=== PATIENT | male | born 1940 | race Caucasian/White ===

== ENCOUNTER → 2016-06-20 | Outpatient (CLI) | payer MEDICARE, OTHER ==
[~2016-06-20] MED LIST: ACET325T9 PO; BISM262O20 PO; DICL75TA PO; DIPH25CA58 PO; FINA5TAB4 PO; HYDR-2672 PO; LACT20SO PO; RANI150C PO; SENN1TAB70 PO; SENN8.6T3 PO; TAMS0.4C2 PO; TIZA4TAB PO; TRAM50TA PO
--- NOTE | 2016-06-20 15:10 | EKG ---
[facility] [address] [place] [address] Test Date: 2016-06-20 Test Time: 15:02:08 Pat Name: NESS ALFONSO Department: Room: Gender: M Survey Project Manager: SHANTANU : 1940 Requested By: IPEDAD KAUFFMAN Order Number: [id number] Reading MD: Measurements Intervals [place] Rate: 79 P: 0 [place]: 182 QRS: -10 QRSD: 82 T: 31 QT: 368 QTc: 428 Interpretive Statements SINUS RHYTHM LEFTWARD AXIS NO SPECIFIC ECG ABNORMALITIES RI6.01 No previous ECG available for comparison
[2016-06-20 15:22] LABS: BASO # 0.1 x10^3/uL (0.0-0.2); BASO % 1 % (0-3); EOS % 3 % (0-3); HEMATOCRIT 44.9 % (39.0-53.0); LYMPH # 2.1 x10^3/uL (1.0-4.8); LYMPH % 27 % (24-48); MEAN CORPUSCULAR HEMOGLOBIN 30 pg (25-35); MEAN CORPUSCULAR HGB CONC 33 g/dL (31-37); MEAN CORPUSCULAR VOLUME 91 fL (79-100); MONO % 15 % (0-9); NEUT % 55 % (31-73); PLATELET COUNT 230 x10^3/uL (140-400); RED BLOOD COUNT 4.93 x10^6/uL (4.30-5.70); RED CELL DISTRIBUTION WIDTH 14.9 % (11.5-14.5); WHITE BLOOD COUNT 7.7 x10^3/uL (4.0-11.0)
[2016-06-20 15:49] LABS: ALBUMIN 3.5 g/dL (3.4-5.0); ALBUMIN/GLOBULIN RATIO 0.9 (1.0-1.7); CALCIUM 8.9 mg/dL (8.5-10.1); GFR 72.3; TOTAL BILIRUBIN 0.3 mg/dL (0.2-1.0); TOTAL PROTEIN 7.3 g/dL (6.4-8.2)
== END | disposition home or self-care (01) ==
LOC: SURGPAT 13:13
PROVIDERS: ATTEND Neurological Surgery
DX: Z01.818 Encounter for other preprocedural examination (principal); Z72.0 Tobacco use
CPT/HCPCS: 36415; 80053; 85027; 87641; 93005

== ENCOUNTER 2016-06-27 08:28 | Observation (INO) | payer MEDICARE, OTHER ==
--- NOTE | 2016-06-24 21:19 | PREOP HP ---
DATE OF SERVICE: Date of surgery will be 06/27/2016. HISTORY OF PRESENT ILLNESS: This is a 76-year-old who is having difficulty with low back pain and pain which radiated into both of his lateral thighs and legs. He notices bilateral thigh weakness. The problem started about 3 months ago spontaneously, he said it began after a bad flu with lots of coughing. He rates his pain as 5/10 after walking very short distances and must sit. He has no pain with sitting. He says that initially the pain is excruciatingly severe all times, but now does reach the point where he is able to walk for very short distances. He is markedly restricted because of the problem. He is taking tizanidine, Mchenry and tramadol. He has had 2 epidural steroid injections, which have not been helpful. He has been in physical therapy without help. PAST MEDICAL HISTORY: Arthritis. PAST SURGICAL HISTORY: Acute pancreatitis 1959, lumbar surgery 2005. FAMILY HISTORY: Cancer. SOCIAL HISTORY: Retired. . Walks rarely on a treadmill. Denies substance abuse, tobacco use or alcohol use. Drinks coffee, tea and soda daily. ALLERGIES: No known drug allergies. CURRENT MEDICATIONS: Tramadol, Mchenry, tizanidine, diclofenac, cyclobenzaprine, Tegretol, finasteride, tamsulosin, lactulose, Zantac. REVIEW OF SYSTEMS: A 12-point review of systems was obtained and is noncontributory except for that mentioned above. PHYSICAL EXAMINATION: NEUROSURGERY EXAMINATION: GENERAL APPEARANCE: Alert, pleasant, no acute distress. HEAD: Normocephalic and atraumatic. SKIN: Warm and dry. Well-healed lumbar incision. MUSCULOSKELETAL: Lumbar paraspinal muscle bulk is normal, restricted range of motion of lumbar spine, bvdj-di-pichllet tenderness of lower lumbar spine with palpation, normal range of motion of the lower extremities bilaterally. EXTREMITIES: No clubbing, cyanosis or edema. NEUROLOGIC: Alert and oriented x 3, normal recent and remote memory, strength 5/5 in bilateral lower extremities except for 4+/5, left quadriceps, sensory was intact to light touch in the lower extremities bilaterally, reflexes were absent at the knees, 1+ and symmetric in bilateral ankles, negative straight leg raising bilaterally, antalgic gait with forward stoop postured. IMAGING: Reviewed. I reviewed a lumbar myelogram. He has had virtual complete block at L2-L3 with a very large associated mass which is probable sequestered disk fragment. There is also spinal cord stimulator in place. ASSESSMENT: 1. Intervertebral disk disorders with radiculopathy, lumbar region. 2. Spinal stenosis of lumbar region. PLAN: I recommended lumbar laminectomy at L2-L3 to remove herniated disk and address the severe stenosis and decompress the spinal canal. He would decide whether or not he wishes to remove the spinal cord stimulator. I did explain the spinal cord stimulator could be damaged with lumbar surgery. He understands. He would like to go ahead. We will make the arrangements. PIEDAD KAUFFMAN MD DR: KILO/lisseth JOB#: [id number] / [id number]
[~2016-06-27] VITALS: Ht 177.8 cm; Wt 103.9 kg
[~2016-06-27 08:28] MED LIST changes: +BACITRACIN 50,000 UNIT in IV NORMAL SALINE 1000ML BAG 1,000 ML IRR ONE; +HYDROmorphone 2 MG/ML VIAL IV PRN; +IV RINGERS,LACTATED 1000ML 1,000 ML IV SCH; +LIDOCAINE 1% 1 ML SYRINGE. ID PRN; +ONDANSETRON PF 4 MG/2 ML VIAL. IV PRN; +PROCHLORPERAZINE 10 MG/2 ML VIAL. IV PRN; +fentaNYL PF VIAL 100 MCG/2 ML VIAL IV PRN
[2016-06-27] MEDS ORDERED: GELATIN SPONGE SIZE 100. ONE (08:45)
[2016-06-27] MEDS ORDERED: THROMBIN TOPICAL 20,000 UNIT SPRAY.SYRN KIT TP ONE (08:45)
[2016-06-27] MEDS ORDERED: KETOROLAC 60 MG/2 ML INJ FOR OR. ONE (08:45)
[2016-06-27] MEDS ORDERED: BUPIVAC MPF-EPI 0.5%-1:200000 30 ML VIAL. IJ ONE (09:00)
[2016-06-27] MEDS ORDERED: ROCURONIUM 50 MG/5 ML VIAL. ONE (10:33)
[2016-06-27] MEDS ORDERED: PROPOFOL 0 ML IV ONE (10:33)
[2016-06-27] MEDS ORDERED: PROPOFOL 20 ML IV ONE ×3 (10:33→13:09)
[2016-06-27] MEDS ORDERED: DEXAMETHASONE SOD PHOS 20 MG/5 ML VIAL. ONE (10:33)
[2016-06-27] MEDS ORDERED: ONDANSETRON PF 4 MG/2 ML VIAL. ONE (10:33)
[2016-06-27] MEDS ORDERED: REMIFENTANIL 2 MG VIAL. IV ONE (10:33)
[2016-06-27] MEDS ORDERED: PHENYLEPHRINE 10 MG/ML VIAL. ONE (10:33)
[2016-06-27] MEDS ORDERED: LIDOCAINE 2% PF Vial for OR 5 ML VIAL. ONE ×2 (10:33→10:48)
[2016-06-27] MEDS ORDERED: MINERAL OIL/PETROLATUM,WHITE OPHTH OINT 3.5GM TUBE. ONE (10:33)
[2016-06-27] MEDS ORDERED: 0.9 % SODIUM CHLORIDE 50 ML VIAL. IJ ONE (10:34)
[2016-06-27] MEDS ORDERED: PROPOFOL 50 ML IV ONE (13:09)
[2016-06-27] MEDS ORDERED: DESFLURANE > 120 MINUTES IH ONE (13:27)
[2016-06-27] MEDS ORDERED: GLYCOPYRROLATE 1 MG/5 ML VIAL. ONE (13:28)
[2016-06-27] MEDS ORDERED: NEOSTIGMINE METHYLSULFATE 5 MG/5 ML SYRINGE. ONE (13:29)
[2016-06-27] MEDS ORDERED: fentaNYL PF VIAL 100 MCG/2 ML VIAL ONE (13:59)
[2016-06-27] MEDS ORDERED: POTASSIUM CL 20MEQ D5-0.45NACL 1,000 ML IV SCH (14:10)
[2016-06-27] MEDS ORDERED: fentaNYL PF VIAL 100 MCG/2 ML VIAL IV PRN (14:15)
[2016-06-27] MEDS ORDERED: 0.9 % SODIUM CHLORIDE 10 ML DISP.SYRIN. IV PRN (14:15)
[2016-06-27] MEDS ORDERED: ONDANSETRON PF 4 MG/2 ML VIAL. IV PRN (14:15)
[2016-06-27] MEDS ORDERED: ACETAMINOPHEN 325 MG TABLET. PO PRN (14:15)
[2016-06-27] MEDS ORDERED: HYDROcodone/APAP 10/325 1 TAB TABLET PO PRN ×2 (14:15)
[2016-06-27] MEDS ORDERED: diphenhydrAMINE 50 MG/ML VIAL IV PRN (14:15)
[2016-06-27] MEDS ORDERED: diphenhydrAMINE HCL 25 MG CAPSULE PO PRN (14:15)
[2016-06-27] MEDS ORDERED: MAGNESIUM HYDROXIDE 2,400 MG/30 ML ORAL.SUSP. PO PRN (14:15)
[2016-06-27] MEDS ORDERED: BISMUTH SUBSALICYLATE 262 MG/15 ML ORAL.SUSP 236ML BOTTLE. PO PRN (14:15)
[2016-06-27] MEDS ORDERED: SENNOSIDES 8.6 MG TABLET PO PRN (14:15)
[2016-06-27] MEDS ORDERED: CALCIUM CARBONATE 500 MG TAB.CHEW PO PRN (14:15)
[2016-06-27] MEDS ORDERED: MAG HYDROX/ALUMINUM HYD/SIMETH 30 ML ORAL.SUSP PO PRN (14:15)
[2016-06-27] MEDS: MORPHINE SULFATE 2 MG/ML DISP.SYRIN. IV PRN ×2 (14:29→14:48)
[2016-06-27] MEDS: fentaNYL PF VIAL 100 MCG/2 ML VIAL IV PRN ×3 (15:00→16:26)
[2016-06-27 15:30] VITALS: BP 110/63
[2016-06-27 16:00] VITALS: BP 118/78
[2016-06-27 16:30] VITALS: BP 117/75
[2016-06-27 17:00] VITALS: BP 118/78
[2016-06-27 17:26] VITALS: BP 117/75
[2016-06-27 18:23] VITALS: BP 121/89
[2016-06-27] MEDS ORDERED: FINASTERIDE 5 MG TABLET. PO SCH (21:00)
[2016-06-27] MEDS ORDERED: DICLOFENAC SODIUM 25 MG TABLET.DR PO SCH (21:00)
[2016-06-27] MEDS ORDERED: FAMOTIDINE 20 MG TABLET. PO SCH (21:00)
[2016-06-27] MEDS ORDERED: SENNOSIDES/DOCUSATE 8.6/50MG TABLET. PO SCH (21:00)
[2016-06-27] MEDS ORDERED: diphenhydrAMINE HCL 25 MG CAPSULE PO SCH (21:00)
[2016-06-27] MEDS ORDERED: TAMSULOSIN 0.4 MG CAP.ER.24H. PO SCH (21:00)
--- NOTE | 2016-06-27 23:17 | OP ---
DATE OF SURGERY: 06/27/2016 PREOPERATIVE DIAGNOSES: 1. Herniated lumbar disk and severe lumbar spinal stenosis of L2-L3 with severe lumbar radiculopathy. 2. Malfunctioning spinal cord stimulator. OPERATIONS PERFORMED: 1. Lumbar laminectomy L2-L3 with removal of large herniated disk and decompression of dura and nerve root. 2. Removal of nonfunctioning spinal cord stimulator. The operation was done with EMG monitoring, SSEP pump monitoring, motor evoked potentials, fluoroscopy, microscopic dissection. COIL ASSEMBLER: Miguelito Omer M.D., assisted with the surgery, assisted with the exposure, with removal of the spinal cord stimulator, the microdecompression, removal of the disk as well as the closure. OPERATIVE INDICATIONS: The patient is a pleasant 76-year-old man who in the past has undergone multilevel laminectomy. He particularly did not do well and ended up with a spinal cord stimulator which currently is nonfunctioning. Beginning a few months ago, he developed acutely severe pain in his back, which was radiating to both of his lower extremities. On imaging studies, he appears to have a large herniated disk at L2-L3 with severe stenosis at that level and I recommended lumbar laminectomy. The imaging studies appeared to be more right-sided than left side, so my feeling was that a right direct approach through his previous scar with the diskectomy and decompression would be the safest approach to laminectomy in this patient. He understood the surgery and the risks. He understood the technique and he wished to go ahead. DESCRIPTION OF PROCEDURE: Following general endotracheal anesthesia, the patient was positioned prone on the [place] spine board. His lumbar region was prepped and draped in standard fashion. BETH hose and AV impulse boots were applied for DVT prophylaxis. A microscope was draped. Fluoroscopy was draped and brought into field. Monitoring was established. Ancef 2 grams given less than 1 hour prior to initiation of the surgery. His incision over in the left flank, where the spinal cord stimulator battery pack was palpated was infiltrated with 0.5% Marcaine and epinephrine and opened. We removed the battery pack and then the second incision which was in the midline adjacent to the L2-L3 region was reopened. We visualized the wires in the midline and freed these and then removed the spinal cord stimulator and battery pack in toto. I then placed a [place] micro disk retractor after securing the scar away at L2-L3 and confirmed my position fluoroscopically. I brought in the high speed air drill and the remainder of surgery done with microscope using microscopic technique. I burred down generous hemilaminotomy and then burred down that medially and then using the 2.5 and 4 mm [place] rongeurs, trimmed the bone away and exposed the dura and the ligamentum flavum. I worked laterally and performed a generous foraminotomy. There was some facet inferiorly which was pushing down on the dura and I trimmed this material away and pulled this back and this markedly help decompressed the dura. The dura was lifted by a large subligamentous disk and I incised the ligament and I began to perform a diskectomy with micro pituitaries. I removed the multiple disc fragments and as I worked, the region became well decompressed to reach across to the contralateral side and also removed disk from a far lateral position superiorly and inferiorly and fully decompressing the entire region. I explored carefully, the disk fragments have been removed. The area was very well decompressed. I did use small amounts of bone wax as well as the bipolar cautery for hemostasis. I irrigated copiously, obtained excellent hemostasis, removed the retractor, obtained hemostasis in the muscle and then I closed the wound in layers with absorbable suture. The skin was closed with 4-0 subcuticular stitch. The operation went very well and the patient was awakened uneventfully. I was quite pleased with the surgery. PIEDAD KAUFFMAN MD DR: KILO/lisseth JOB#: [id number] / [id number]
--- NOTE | 2016-06-30 08:42 | PATHOLOGY ---
PATHOLOGY REPORT * * * * * * * * FINAL DIAGNOSIS: Segments of fibrocartilaginous, adipose and skeletal muscle tissue and bone, lumbar disc and decompression: - Degenerative changes of fibrocartilaginous tissue. COMMENT: There is no evidence of an acute inflammatory process or malignancy. (JPM:yoli; d/t: 06/29/2016) REPORT ELECTRONICALLY SIGNED BY: Ghulam Oro M.D. DATE/TIME: 06/30/2016 08:40 * * * * * * * * GROSS PATHOLOGY: Received in formalin labeled "Juan Carlos Hagan, lumbar disc and decompression," are multiple segments of dangelo rubbery and gritty tissue measuring 6.3 x 5.5 x 1.4 cm in aggregate dimensions admixed with bone. The tissue is submitted representatively in cassette A1, following decalcification. (KAH:yoli; 06/28/2016) INITIAL CPT CODE(S): A; 60615, 62419 Professional services performed [place] [facility] [place] [address] Technical services performed by [facility] at [address] [place] [address] [address] [address]. SPECIMEN(S) RECEIVED: A.Lumbar disc and decompression CLINICAL HISTORY: Lumbar herniated disc with radiculopathy, stenosis PATIENT: JUAN CARLOS HAGAN O /AGE: 1 1940 (Age: 76) PATIENT #: [id number] ALT CASE #: SPECIMEN COLLECTION DATE: 06/27/2016 SPECIMEN RECEIVED DATE: 06/27/2016 [facility] - [address] [place] [address] - PHONE: [phone] * * * END OF REPORT * * *
== END 2016-06-27 19:45 | disposition home or self-care (01) ==
LOC: SURG 08:28 → EDUNIT# 11:30 → 4 SOUTHEST 14:38
PROVIDERS: ADMIT Neurological Surgery; ATTEND Neurological Surgery
DX: M48.06 Spinal stenosis, lumbar region (principal); M51.16 Intervertebral disc disorders with radiculopathy, lumbar region; M19.90 Unspecified osteoarthritis, unspecified site; T85.113A Breakdown (mechanical) of implanted electronic neurostimulator, generator, initial encounter; Z80.9 Family history of malignant neoplasm, unspecified; Y75.2 Prosthetic and other implants, materials and neurological devices associated with adverse incidents; Y92.89 Other specified places as the place of occurrence of the external cause
CPT/HCPCS: 63047; 76000; 96374; G0378; G0379; J1100; J1885; J2270; J2405; J2704; J2710; J3010; J3490; J7030; J7120